=== PATIENT | female | born 1985 | race Two or more races ===

== ENCOUNTER 2018-03-19 20:00 | Observation (INO) | payer MEDICAID, OTHER | END 2018-03-19 21:05 | disposition home or self-care (01) | DRG 565 | LOC: LDRP 20:00 | PROVIDERS: ADMIT Obstetrics & Gynecology; ATTEND Obstetrics & Gynecology | DX: O47.9 False labor, unspecified (principal); Z3A.38 38 weeks gestation of pregnancy | CPT/HCPCS: 59025; 81002; G0378 ==